=== PATIENT | female | born 1985 | race Caucasian/White ===

== ENCOUNTER 2023-05-22 17:04 | Emergency (ER) | payer OTHER ==
[2023-05-22 18:24] LABS: BHCG - Serum Negative (NEGATIVE); Pregs Control Background? CLEAR/WHITE (CLR/WHITE); Pregs Control Bar Appear? YES (CONTROL BAR)
[2023-05-22] MEDS ORDERED: Ketorolac Tromethamine 30 MG/ML VIAL ONE (18:30)
== END 2023-05-22 20:34 ==
LOC: MADERS 17:04
DX: S60.211A Contusion of right wrist, initial encounter (principal); S93.401A Sprain of unspecified ligament of right ankle, initial encounter; S73.101A Unspecified sprain of right hip, initial encounter; F17.210 Nicotine dependence, cigarettes, uncomplicated; W13.2XXA Fall from, out of or through roof, initial encounter
CPT/HCPCS: 72220; 84703; 96372; J1885

== ENCOUNTER 2024-02-23 21:39 | Emergency (ER) | payer SELFPAY ==
[2024-02-23] MEDS ORDERED: Ipratropium/Albuterol 3 ML NEB ONE (22:00)
[2024-02-23] MEDS ORDERED: methylPREDNISolone Sod Succ/PF 125 MG/2 ML VIAL ONE (22:00)
[2024-02-23] MEDS ORDERED: Albuterol 2.5 MG (3 mL) NEB ONE (22:24)
== END 2024-02-23 22:54 | disposition home or self-care (01) ==
LOC: MADERS 21:39
DX: J45.909 Unspecified asthma, uncomplicated (principal); R09.81 Nasal congestion; F17.210 Nicotine dependence, cigarettes, uncomplicated
CPT/HCPCS: 71045; 96372; J2919; J7611; J7620